=== PATIENT | male | born 1955 | race Caucasian/White ===

== ENCOUNTER 2019-01-04 09:36 | Inpatient (IN) ==
[2019-01-04] MEDS ORDERED: GI Cocktail 40 ML EACH PO ONE (09:57)
--- NOTE | 2019-01-04 10:00 | Emergency Department Note ---
Disposition Clinical Impression: Acute kidney failure Qualifiers: Acute renal failure type: unspecified Qualified Code(s): N17.9 - Acute kidney failure, unspecified Disposition: Admitted As Inpatient Condition: Good Referrals: Iman Brasher CNP [Primary Care Provider] - Forms: ED Satisfaction Letter, Work/School Release Time of Disposition: 13:52 General Adult HPI - General Chief complaint: ED Abdominal Pain Stated complaint: abd pain,vomiting Time Seen by Provider: 01/04/19 09:38 Source: patient, family Mode of arrival: private vehicle Limitations: no limitations Nursing Notes Reviewed: Yes Vital Signs Reviewed: Yes - History of Present Illness HPI Narrative: Kahlil is a pleasant 63-year-old male. He is a past medical history of elevated cholesterol, hypertension, open heart surgery in 2005. He presents to the emergency room with a chief complaint of heartburn worse over the past 7 days however ongoing for the past several months. He was recently evaluated at [facility] in [place] for cardiac pathology. Location: other (describes heartburn type pain) Pain Scale: 7 Quality: other Consistency: now resolved - Related Data Allergies Allergy/AdvReac Type Severity Reaction Status Date / Time hydrocodone AdvReac Vomiting Verified 01/04/19 10:51 Tizanidine [From Zanaflex] AdvReac Vomiting Verified 01/04/19 10:51 All systems ED: reviewed and negative except as stated. Review of Systems: As Per HPI Past Medical History - Past Medical History Medical history: Reports: coronary artery disease, diabetes, hyperlipidemia, hypertension, myocardial infarction, thyroid disease Psychiatric history: Reports: no psych history - Social History Smoking Status: Former smoker Smokeless Tobacco Status: No Alcohol use: Reports: none Drug use: Reports: none Physical Exam - General Limitations: no limitations General appearance: alert, in no apparent distress - Head Head exam: atraumatic - Eye Eye exam: Present: normal appearance, PERRL - ENT ENT exam: normal exam, normal oropharynx - Neck Neck exam: Present: normal inspection - Chest Chest inspection: Present: normal inspection, symmetric chest wall rise - Respiratory Respiratory exam: Present: normal lung sounds bilaterally. Absent: respiratory distress, wheezes - Cardiovascular Cardiovascular exam: Present: regular rate, normal rhythm - Abdominal Exam Abdominal exam: Present: soft, Non-Tender Course Course Narrative: Patient states he felt relief following GI cocktail however on further evaluation, he noted that he did not have the heartburn pain prior to giving the GI cocktail and that was his complaint that brought him into the emergency room. Initial labs review showing acute kidney injury. Subsequent workup found heme positive stool. CT scan was ordered and patient was admitted to the floor for further evaluation due to acute kidney injury. Vital Signs Temperature 98.5 F 01/04/19 09:39 Pulse Rate 62 01/04/19 09:39 Respiratory Rate 17 01/04/19 09:39 Blood Pressure 119/73 01/04/19 09:39 O2 Sat by Pulse Oximetry 97 01/04/19 09:39 Temperature 98.5 F 01/04/19 09:39 Pulse Rate 56 01/04/19 12:23 Respiratory Rate 14 01/04/19 12:23 Blood Pressure 106/66 01/04/19 12:23 O2 Sat by Pulse Oximetry 97 01/04/19 12:23 Oxygen Delivery Oxygen Delivery Room Air Medical Decision Making - Lab Data Result diagrams: 01/04/19 10:05 01/04/19 10:05 Lab Results 01/04/19 01/04/19 01/04/19 Range/Units 10:05 10:05 12:31 WBC 9.2 (4.3-11.1) K/mcL RBC 3.29 L (4.19-5.50) M/mcL Hgb 9.7 L (12.9-16.9) g/dL Hct 29.1 L (37.5-50.1) % MCV 88.4 (83.0-100.0) fL MCH 29.5 (28.0-33.3) pg MCHC 33.3 (31.6-35.5) g/dL RDW 13.9 (11.5-14.5) % Plt Count 335 (140-400) K/mcL MPV 10.9 (9.4-12.4) fL Immature Gran % 0.4 (0-4) % Seg Neutrophils % 74.8 % Lymphocytes % 15.7 % Monocytes % 7.1 % Eosinophils % 1.6 % Basophils % 0.4 % Neutrophils # 6.8 (1.6-8.9) K/mcL Lymphocytes # 1.4 (0.6-4.6) K/mcL Monocytes # 0.7 (0.0-1.3) K/mcL Eosinophils # 0.2 (0.0-0.6) K/mcL Basophils # 0.0 (0.0-0.2) K/mcL Sodium 133 L (136-145) mEq/L Potassium 4.6 (3.5-5.1) mEq/L Chloride 91 L (98-107) mEq/L Carbon Dioxide 32 H (23-29) mEq/L BUN 66 H (8-23) mg/dL Creatinine 2.50 H (0.70-1.30) mg/dL Est GFR ( Amer) 32 L (> 60) Est GFR (Non-Af Amer) 26 L (> 60) BUN/Creatinine Ratio 26 (6-26) Glucose 129 H (70-105) mg/dL Calculated Osmolality 297 (280-300) Calcium 11.0 H (8.6-10.3) mg/dL Total Bilirubin 0.4 (0.3-1.0) mg/dL Direct Bilirubin 0.1 (0.0-0.2) mg/dL Indirect Bilirubin 0.3 (0.0-1.2) mg/dL AST 27 (13-39) Units/L ALT 26 (7-52) Units/L Alkaline Phosphatase 93 (34-104) Units/L Troponin I < 0.03 (< 0.04) ng/mL Serum Total Protein 8.1 (6.4-8.9) g/dL Albumin 4.5 (3.5-5.7) g/dL Globulin 3.6 H (2.4-3.5) g/dL Albumin/Globulin Ratio 1.3 (1.1-2.2) Lipase 64 (11-82) Units/L Stool Occult Bld Scrn Positive A (Negative)
[2019-01-04 10:16] LABS: Basophils % 0.4 %; Eosinophils # 0.2 K/mcL (0.0-0.6); Eosinophils % 1.6 %; Hematocrit 29.1 % (37.5-50.1); Hemoglobin 9.7 g/dL (12.9-16.9); Immature Granulocytes % 0.4 % (0-4); Lymphocytes # 1.4 K/mcL (0.6-4.6); Lymphocytes % 15.7 %; Mean Corpuscular HGB Conc 33.3 g/dL (31.6-35.5); Mean Corpuscular Hemoglobin 29.5 pg (28.0-33.3); Mean Corpuscular Volume 88.4 fL (83.0-100.0); Mean Platelet Volume 10.9 fL (9.4-12.4); Monocytes # 0.7 K/mcL (0.0-1.3); Monocytes % 7.1 %; Neutrophils # 6.8 K/mcL (1.6-8.9); Platelet Count 335 K/mcL (140-400); Red Blood Count 3.29 M/mcL (4.19-5.50); Red Cell Distribution Width 13.9 % (11.5-14.5); Segmented Neutrophils % 74.8 %
[2019-01-04 10:37] LABS: Alanine Aminotransferase 26 Units/L (7-52); Albumin 4.5 g/dL (3.5-5.7); Albumin/Globulin Ratio 1.3 (1.1-2.2); Alkaline Phosphatase 93 Units/L (34-104); Aspartate Amino Transferase 27 Units/L (13-39); BUN/Creatinine Ratio 26 (6-26); Bilirubin,Direct 0.1 mg/dL (0.0-0.2); Bilirubin,Indirect 0.3 mg/dL (0.0-1.2); Bilirubin,Total 0.4 mg/dL (0.3-1.0); Blood Urea Nitrogen 66 mg/dL (8-23); Carbon Dioxide 32 mEq/L (23-29); Chloride 91 mEq/L (98-107); Globulin 3.6 g/dL (2.4-3.5); Glucose 129 mg/dL (70-105); Lipase 64 Units/L (11-82); Osmolality,Calculated 297 (280-300); Potassium 4.6 mEq/L (3.5-5.1); Sodium 133 mEq/L (136-145); Total Protein 8.1 g/dL (6.4-8.9); eGFR For Non-African Americans 26 (> 60)
[2019-01-04 10:38] LABS: Troponin I < 0.03 ng/mL (< 0.04)
[2019-01-04] MEDS ORDERED: 0.9 % Sodium Chloride 1,000 ML IVC ONE (12:00)
[2019-01-04] MEDS ORDERED: Isovue-370 500 ML BOTTLE IVP ONE (12:45)
--- NOTE | 2019-01-04 13:22 | Emergency Department Note ---
Disposition Clinical Impression: Acute kidney failure Disposition: Admitted As Inpatient Condition: Good General Adult HPI - General Chief complaint: ED Abdominal Pain Stated complaint: abd pain,vomiting Time Seen by Provider: 01/04/19 09:38 Source: patient, family Mode of arrival: private vehicle Limitations: no limitations - History of Present Illness Pain Scale: 7 - Related Data Allergies Allergy/AdvReac Type Severity Reaction Status Date / Time hydrocodone AdvReac Vomiting Verified 01/04/19 10:51 Tizanidine [From Zanaflex] AdvReac Vomiting Verified 01/04/19 10:51 Past Medical History - Past Medical History Medical history: Reports: coronary artery disease, diabetes, hyperlipidemia, hypertension, myocardial infarction, thyroid disease Psychiatric history: Reports: no psych history - Social History Smoking Status: Former smoker Smokeless Tobacco Status: No Alcohol use: Reports: none Drug use: Reports: none Physical Exam - General Limitations: no limitations General appearance: alert, in no apparent distress Course Vital Signs Temperature 98.5 F 01/04/19 09:39 Pulse Rate 62 01/04/19 09:39 Respiratory Rate 17 01/04/19 09:39 Blood Pressure 119/73 01/04/19 09:39 O2 Sat by Pulse Oximetry 97 01/04/19 09:39 Temperature 98.5 F 01/04/19 09:39 Pulse Rate 56 01/04/19 12:23 Respiratory Rate 14 01/04/19 12:23 Blood Pressure 106/66 01/04/19 12:23 O2 Sat by Pulse Oximetry 97 01/04/19 12:23 Oxygen Delivery Oxygen Delivery Room Air Medical Decision Making - Lab Data Result diagrams: 01/04/19 10:05 01/04/19 10:05 Lab Results 01/04/19 01/04/19 01/04/19 Range/Units 10:05 10:05 12:31 WBC 9.2 (4.3-11.1) K/mcL RBC 3.29 L (4.19-5.50) M/mcL Hgb 9.7 L (12.9-16.9) g/dL Hct 29.1 L (37.5-50.1) % MCV 88.4 (83.0-100.0) fL MCH 29.5 (28.0-33.3) pg MCHC 33.3 (31.6-35.5) g/dL RDW 13.9 (11.5-14.5) % Plt Count 335 (140-400) K/mcL MPV 10.9 (9.4-12.4) fL Immature Gran % 0.4 (0-4) % Seg Neutrophils % 74.8 % Lymphocytes % 15.7 % Monocytes % 7.1 % Eosinophils % 1.6 % Basophils % 0.4 % Neutrophils # 6.8 (1.6-8.9) K/mcL Lymphocytes # 1.4 (0.6-4.6) K/mcL Monocytes # 0.7 (0.0-1.3) K/mcL Eosinophils # 0.2 (0.0-0.6) K/mcL Basophils # 0.0 (0.0-0.2) K/mcL Sodium 133 L (136-145) mEq/L Potassium 4.6 (3.5-5.1) mEq/L Chloride 91 L (98-107) mEq/L Carbon Dioxide 32 H (23-29) mEq/L BUN 66 H (8-23) mg/dL Creatinine 2.50 H (0.70-1.30) mg/dL Est GFR ( Amer) 32 L (> 60) Est GFR (Non-Af Amer) 26 L (> 60) BUN/Creatinine Ratio 26 (6-26) Glucose 129 H (70-105) mg/dL Calculated Osmolality 297 (280-300) Calcium 11.0 H (8.6-10.3) mg/dL Total Bilirubin 0.4 (0.3-1.0) mg/dL Direct Bilirubin 0.1 (0.0-0.2) mg/dL Indirect Bilirubin 0.3 (0.0-1.2) mg/dL AST 27 (13-39) Units/L ALT 26 (7-52) Units/L Alkaline Phosphatase 93 (34-104) Units/L Troponin I < 0.03 (< 0.04) ng/mL Serum Total Protein 8.1 (6.4-8.9) g/dL Albumin 4.5 (3.5-5.7) g/dL Globulin 3.6 H (2.4-3.5) g/dL Albumin/Globulin Ratio 1.3 (1.1-2.2) Lipase 64 (11-82) Units/L Stool Occult Bld Scrn Positive A (Negative) Attestation Statement - Attestation Attestation: I examined this patient and my medical decision-making was reviewed with the Resident Physician. I agree with the documented findings, disposition and treatment plan as described except to the extent set forth below. Patient to the ED with a chief complaint of reflux. Patient is having intolerable reflux with symptoms into his chest. He had symptoms a couple of days ago when he was in [place] and went to [facility]. They told him to discontinue the medication he is on for his back and he woke up last night with symptoms again. He reports a recent 20 pound weight loss. On examination he appears comfortable with a soft abdomen. Plan. His hemoglobin is dropped 3 g since last check. Stool Hemoccult was done which is positive. He will be placed on Protonix. Recent his renal function as well. We will admit. CT scan reviewed with patient and his . They are aware of the concerning mass in his abdomen and that it will need further evaluation to rule out a neoplastic process. Abdomen/Pelvis CT 01/04/19 12:45 IMPRESSION: Findings suspicious for metastatic disease. Multiple pulmonary nodules. Scattered sclerotic osseous foci are suspicious for metastatic disease. Masslike area within the upper abdomen may represent a mesenteric mass, extension of a duodenal mass, or a pancreatic head mass. Multiple surrounding enlarged lymph nodes are suspicious for metastatic disease. Evaluation is suboptimal without contrast. Recommend post contrast imaging versus MRI with contrast. D/ / 01/04/2019 14:20:16 Jose Guerrier MD / Sarah Woodson Interpreting Provider: Jose Guerrier MD
[2019-01-04] MEDS ORDERED: Pantoprazole 80 MG in 0.9 % Sodium Chloride 50 ML IVPB ONE (13:23)
[2019-01-04] MEDS ORDERED: *HR* FentaNYL (PF) 100 MCG/2 ML VIAL IVP ONE (14:32)
[2019-01-04] MEDS ORDERED: Naloxone 0.4 MG/ML INJ IVP PRN (15:05)
--- NOTE | 2019-01-04 15:13 | Internal Med History&Physical ---
Date of Encounter: 01/05/19 Time of Encounter: 15:11 Internal Medicine - H&P: HPI Chief complaint: Nausea ,vomiting, heartburn Admitted From: Home Plans for Post Hospital Care: Home History of present illness: Mr. Gandhi is a 63 year old male past medical history of coronary artery disease status post CABG in 2005, diabetes, hypertension, hyperlipidemia, hypothyroidism, restless leg syndrome came in with complain of nausea vomiting and heartburn. Heartburn is ongoing for a few months. He was recently hospitalized in [place] and had workup including a CT scan and was told he might have a surgical reaction to one of his medication including tizanidine. He did admit to having some weight loss around 20 pounds. He denies taking any pain medication except tramadol. He denies any recent coronary events in many y ears. He did have associated lightheadedness. Denies any syncopal episodes. He came in back with complain of nausea vomiting and heartburn as it woke him up last night. Patient does not know whether he is anemic or his normal hemoglobin level. Denies any constipation diarrhea or urinary complaints. He denies any abdominal pain or tenderness besides the heartburn symptoms. Denies any difficu lty breathing, chest pain, weakness or numbness. He does have diabetic neuropathy in both lower extremity as well as testing Syndrome. Patient was evaluated in ER which showed positive stool occult blood and the drop in hemoglobin from 12 in June last year to 9. He denies any courtney blood or dark stool. Stool occult test was positive. Patient also was found to have acute kidney injury. Patient was started on pantoprazole and was given 1 L of IV fluids and patient was requested for GI bleeding. Patient also had CT abdomen done which showed findings suspicious of metastasis disease with multiple pulmonary nodules, sclerotic foci in many location, masslike lesion in the upper abdomen which could be mesenteric mass, extensive no duodenal mass or pancreatic mass. Patient was aware of the findings from ER physician. He was aware that it could be cancerous condition and is anxious and says in "I do not know want to know how long do I have". Past Med Surg Social Fam HX - Past Medical History Medical history: coronary artery disease, diabetes, hyperlipidemia, hypertension, myocardial infarction, thyroid disease Psychiatric history: no psych history - Past Surgical History Surgical History: coronary bypass (CABG) - Social History Smoking Status: Former smoker (about 40-45 pack years) Smokeless Tobacco Status: No Alcohol use: none Drug use: none Activity Level: Independent ambulation - Family History Daughter Cause of : breast cancer Hx Family Cancer: Yes - Additional Family History Additional family history: Father had lung Ca - at 54. Mother had Heart disease- Had GI cancer. Borther has heart disease. Daughter of breast cancer at 44. Sister has HTN Internal Medicine - H&P: Meds Aspirin [Adult Aspirin Regimen] 81 mg PO DAILY 01/04/19 [History] Atenolol [Tenormin] 25 mg PO DAILY 01/04/19 [History] Benazepril HCl [Lotensin] 20 mg PO DAILY 01/04/19 [History] Levothyroxine 125 mcg PO DAILY 01/04/19 [History] [place] 5-325 mg 5 - 325 mg PO Q6H PRN 01/04/19 [History] Simvastatin 40 mg PO HS 01/04/19 [History] Tizanidine HCl 4 mg PO TID PRN 01/04/19 [History] Tramadol HCl 50 mg PO Q6H PRN 01/04/19 [History] rOPINIRole 1 mg PO HS 01/04/19 [History] Allergy/AdvReac Type Severity Reaction Status Date / Time hydrocodone AdvReac Vomiting Verified 01/04/19 10:51 Tizanidine [From Zanaflex] AdvReac Vomiting Verified 01/04/19 10:51 All Systems PM: A 10-system review of systems was performed and is negative for pertinent findings except as documented above in the HPI. - Constitutional Vitals: Temp Pulse Resp BP Pulse Ox 98.5 F 64 15 109/64 96 01/04/19 09:39 01/04/19 14:47 01/04/19 14:47 01/04/19 14:47 01/04/19 14:47 Exam: Constitutional: Vitals as noted. Conversant. No Apparent Distress. Eyes : Sclera white, conjunctival paler ENT : Grossly normal hearing. dry mucus membranes. No JVD, no cervical lymphadenopathy. no thyromegaly or mass. Respiratory : Clear to auscultation bilaterally. No accessory muscle use, rales, rhonchi or wheezes Cardiovascular : RRR, +S1, +S2. no murmur, gallop, rubs. No chest wall tenderness GI/Abdominal : Soft, Non-tender, Non-distended, normal bowel sounds, soft, no peritoneal signs. no orgenomegaly or mass appreciated. no hernia. Musculoskeletal: no edema or cyanosis. warm extremities, no calf tenderness. Neurological: AO X3, CN II-XII grossly intact, grossly normal motor and sensory exam. Skin: No skin rash, lesions or ulcers noted. Pych: depressed affect. Internal Med - H&P Results - Labs CBC & Chem 7: 01/05/19 00:30 01/05/19 00:30 Labs: Short CBC 01/04/19 Range/Units 10:05 WBC 9.2 (4.3-11.1) K/mcL Hgb 9.7 L (12.9-16.9) g/dL Hct 29.1 L (37.5-50.1) % Plt Count 335 (140-400) K/mcL Neutrophils # 6.8 (1.6-8.9) K/mcL BMP 01/04/19 10:05 Sodium 133 L Potassium 4.6 Chloride 91 L Carbon Dioxide 32 H BUN 66 H Creatinine 2.50 H Glucose 129 H Calcium 11.0 H Cardiac Enzymes 01/04/19 Range/Units 10:05 Troponin I < 0.03 (< 0.04) ng/mL Liver Function 01/04/19 Range/Units 10:05 Total Bilirubin 0.4 (0.3-1.0) mg/dL Direct Bilirubin 0.1 (0.0-0.2) mg/dL AST 27 (13-39) Units/L ALT 26 (7-52) Units/L Alkaline Phosphatase 93 (34-104) Units/L Albumin 4.5 (3.5-5.7) g/dL - EKG Data -: EKG Interpreted by Myself EKG shows normal: sinus rhythm Rate: normal - Impressions ITS Impressions Abdomen/Pelvis CT 01/04/19 12:45 IMPRESSION: Findings suspicious for metastatic disease. Multiple pulmonary nodules. Scattered sclerotic osseous foci are suspicious for metastatic disease. Masslike area within the upper abdomen may represent a mesenteric mass, extension of a duodenal mass, or a pancreatic head mass. Multiple surrounding enlarged lymph nodes are suspicious for metastatic disease. Evaluation is suboptimal without contrast. Recommend post contrast imaging versus MRI with contrast. D/ / 01/04/2019 14:20:16 Jose Guerrier MD / Sarah Woodson Interpreting Provider: Jose Guerrier MD - Assessment and Plan (1) GI bleed Current Visit: Yes Status: Acute Assessment and plan: Patient may have upper GI bleed Had last colonoscopy in 2005 which was unremarkable. Has not had upper endoscopy in lifetime. Denies taking any NSAIDs except Aspirin or any other blood thinners. We will continue patient on IV fluids Trend troponin and transfuse if hemoglobin less than 8 We will keep on Protonix IV 40 twice a day Patient will need upper endoscopy and possibly colonoscopy. Will keep nothing by mouth for now until evaluated by surgery. Qualifiers: GI bleed type/associated pathology: unspecified gastrointestinal hemorrhage type Qualified Code(s): K92.2 - Gastrointestinal hemorrhage, unspecified (2) Abdominal mass Current Visit: Yes Status: Acute Assessment and plan: Patient has upper abdominal mass possibly arising from the duodenum versus pancreas We will consult GI as well as surgery. Further evaluation with endoscopy. Qualifiers: Abdominal location: epigastric Qualified Code(s): R19.06 - Epigastric swelling, mass or lump (3) Acute kidney failure Current Visit: Yes Status: Acute Assessment and plan: Possibly prerenal We will keep patient on IV fluids and monitor renal function Strict I/O and avoid nephrotoxins. We will further imaging with contrast as of now Qualifiers: Acute renal failure type: unspecified Qualified Code(s): N17.9 - Acute kidney failure, unspecified (4) DVT prophylaxis Current Visit: Yes Status: Acute Assessment and plan: EPC D (5) Diabetes Current Visit: Yes Status: Acute Assessment and plan: does not appear to be on oral hypoglycemics We will keep him on Accu-Cheks and sliding scale insulin for now. Qualifiers: Diabetes mellitus type: type 2 Diabetes mellitus jail insulin use: without truck terminal manager use Qualified Code(s): E11.9 - Type 2 diabetes mellitus without complications (6) HTN (hypertension) Current Visit: Yes Status: Acute Assessment and plan: Hold home antihypertensives given possible GI bleed and blood pressure on the lower end. Qualifiers: Hypertension type: unspecified Qualified Code(s): I10 - Essential (primary) hypertension (7) CAD (coronary artery disease) Current Visit: Yes Status: Acute Assessment and plan: c/w statin. Aspirin on hold given GI bleed. atenol on hold given BP on lower end. Qualifiers: Coronary Disease-Associated Artery/Lesion type: [place] artery Associated angina: without angina Qualified Code(s): I25.10 - Atherosclerotic heart disease of [place] coronary artery without angina pectoris (8) Hypothyroid Current Visit: Yes Status: Acute Assessment and plan: Continue home medications Qualifiers: Hypothyroidism type: unspecified Qualified Code(s): E03.9 - Hypothyroidism, unspecified (9) Diabetic neuropathy Current Visit: Yes Status: Acute Qualifiers: Diabetes mellitus type: type 2 Qualified Code(s): E11.42 - Type 2 diabetes mellitus with diabetic polyneuropathy (10) Restless leg syndrome Current Visit: Yes Status: Acute Assessment and plan: We will continue home medication - Time Spent With Patient Total time spent is greater than 50% in coordination of care (as documented) at patient's floor/unit and/or counseling patient:
[2019-01-04] MEDS ORDERED: *HR* LORazepam 0.5 MG TABLET PO PRN (15:15)
[2019-01-04] MEDS ORDERED: Ondansetron 4 MG/2 ML VIAL IVP PRN (15:16)
[2019-01-04 16:02] LABS: Prothrombin Time 11.8 Seconds (9.4-12.1)
[2019-01-04 16:11] LABS: Hematocrit 27.9 % (37.5-50.1); Hemoglobin 9.2 g/dL (12.9-16.9)
[2019-01-04] MEDS: Ringers Solution, Lactated 1,000 ML IVC SCH (17:49)
[2019-01-04] MEDS: Insulin LISPRO 300 UNITS/3 ML VIAL SQ SCH (17:49)
[2019-01-04] MEDS: Pantoprazole 40 MG VIAL IVP SCH (17:49)
[2019-01-04] MEDS: rOPINIRole 1 MG TABLET PO SCH (21:01)
[2019-01-04 22:25] LABS: Hematocrit 29.4 % (37.5-50.1); Hemoglobin 9.7 g/dL (12.9-16.9)
[2019-01-05] MEDS: Insulin LISPRO 300 UNITS/3 ML VIAL SQ SCH ×5 (00:47→23:33)
[2019-01-05 01:09] LABS: Basophils % 0.3 %; Eosinophils # 0.3 K/mcL (0.0-0.6); Eosinophils % 2.9 %; Hematocrit 26.8 % (37.5-50.1); Hemoglobin 8.6 g/dL (12.9-16.9); Immature Granulocytes % 0.7 % (0-4); Lymphocytes # 1.8 K/mcL (0.6-4.6); Lymphocytes % 19.4 %; Mean Corpuscular HGB Conc 32.1 g/dL (31.6-35.5); Mean Corpuscular Hemoglobin 29.3 pg (28.0-33.3); Mean Corpuscular Volume 91.2 fL (83.0-100.0); Mean Platelet Volume 11.6 fL (9.4-12.4); Monocytes # 0.8 K/mcL (0.0-1.3); Monocytes % 8.8 %; Neutrophils # 6.4 K/mcL (1.6-8.9); Platelet Count 278 K/mcL (140-400); Red Blood Count 2.94 M/mcL (4.19-5.50); Segmented Neutrophils % 67.9 %
[2019-01-05 01:29] LABS: Calcium 9.9 mg/dL (8.6-10.3); Potassium 4.6 mEq/L (3.5-5.1)
[2019-01-05] MEDS: Ringers Solution, Lactated 1,000 ML IVC SCH (05:00)
[2019-01-05] MEDS: Pantoprazole 40 MG VIAL IVP SCH ×2 (05:01→17:05)
[2019-01-05] MEDS: Levothyroxine Sodium 100 MCG VIAL IVP SCH (05:01)
--- NOTE | 2019-01-05 08:01 | Internal Med Progress Note ---
Hospitalist Progress Note - Encounter Date of Encounter: 01/05/19 Time of Encounter: 08:01 - Subjective Interval History: Patient seen and examined this morning at bedside. No acute overnight events. Is currently nothing by mouth. Feeling anxious. Denies any difficulty breathing or abdominal pain, nausea vomiting or diarrhea. - Exam Vitals: Temp Pulse Resp BP Pulse Ox 98.0 F 68 17 125/71 97 01/05/19 07:57 01/05/19 07:57 01/05/19 07:57 01/05/19 07:57 01/05/19 07:57 Exam: Constitutional: Vitals as noted. Conversant. No Apparent Distress. Respiratory : CTAB. No accessory muscle use, rales, rhonchi or wheezes Cardiovascular : RRR, +S1, +S2. no murmur, gallop, rubs. No chest wall tenderness GI/Abdominal : Soft, Non-tender, Non-distended, soft, no peritoneal signs. Musculoskeletal: no edema or cyanosis. warm extremities, no calf tenderness. Neurological: AO X3, CN II-XII grossly intact, grossly normal motor exam. Skin: No skin rash, lesions or ulcers noted. Pych: depressed affect. - Assessment and Plan (1) GI bleed Current Visit: Yes Status: Suspected (2) Abdominal mass Current Visit: Yes Status: Acute (3) Acute kidney failure Current Visit: Yes Status: Acute (4) DVT prophylaxis Current Visit: Yes Status: Acute (5) Diabetes Current Visit: Yes Status: Acute (6) HTN (hypertension) Current Visit: Yes Status: Acute (7) CAD (coronary artery disease) Current Visit: Yes Status: Acute (8) Hypothyroid Current Visit: Yes Status: Acute (9) Diabetic neuropathy Current Visit: Yes Status: Acute (10) Restless leg syndrome Current Visit: Yes Status: Acute - Summary of Assessment and Plan Summary of Assessment and Plan: Anemia, GI bleed, abdominal mass - possible upper GI bleed - c/w PPI - CT abdomen with possible pancreatic vs duodenal mass. CT - GI and surgery following for endoscopy - CT with innumerable b/l Pul nodules and sceloritic body lesion suspicious of metastatic disease. Will consult oncology Acute kidney failure - Possibly prerenal - improved with IVF. c/w with IVF. - We will hold further imaging with contrast as of now Diabetes - c/w SSI and accuchecks HTN - Hold home antihypertensives CAD - c/w statin. Aspirin and atenolol on hold given GI bleed and BP on lower end. Hypothyroid - c/w IV levothyroxin Restless leg syndrome - c/w home medication DVT prophylaxis - EPCD - Time Spent with Patient Total time spent is greater than 50% in coordination of care (as documented) at patient's floor/unit and/or counseling patient: Internal Medicine: Result - Labs CBC & Chem 7: 01/05/19 09:50 01/05/19 00:30 Labs: Short CBC 01/04/19 01/04/19 01/04/19 Range/Units 10:05 16:05 21:53 WBC 9.2 (4.3-11.1) K/mcL Hgb 9.7 L 9.2 L 9.7 L (12.9-16.9) g/dL Hct 29.1 L 27.9 L 29.4 L (37.5-50.1) % Plt Count 335 (140-400) K/mcL Neutrophils # 6.8 (1.6-8.9) K/mcL 01/05/19 Range/Units 00:30 WBC 9.4 (4.3-11.1) K/mcL Hgb 8.6 L (12.9-16.9) g/dL Hct 26.8 L (37.5-50.1) % Plt Count 278 (140-400) K/mcL Neutrophils # 6.4 (1.6-8.9) K/mcL BMP 01/04/19 01/05/19 10:05 00:30 Sodium 133 L 132 L Potassium 4.6 4.6 Chloride 91 L 97 L Carbon Dioxide 32 H 27 BUN 66 H 56 H Creatinine 2.50 H 2.08 H Glucose 129 H 95 Calcium 11.0 H 9.9 Cardiac Enzymes 01/04/19 Range/Units 10:05 Troponin I < 0.03 (< 0.04) ng/mL Liver Function 01/04/19 Range/Units 10:05 Total Bilirubin 0.4 (0.3-1.0) mg/dL Direct Bilirubin 0.1 (0.0-0.2) mg/dL AST 27 (13-39) Units/L ALT 26 (7-52) Units/L Alkaline Phosphatase 93 (34-104) Units/L Albumin 4.5 (3.5-5.7) g/dL - ABG Interpretation ABG results: PT/INR, D-dimer PT 11.8 Seconds (9.4-12.1) 01/04/19 15:05 - Impressions Impressions Abdomen/Pelvis CT 01/04/19 12:45 IMPRESSION: Findings suspicious for metastatic disease. Multiple pulmonary nodules. Scattered sclerotic osseous foci are suspicious for metastatic disease. Masslike area within the upper abdomen may represent a mesenteric mass, extension of a duodenal mass, or a pancreatic head mass. Multiple surrounding enlarged lymph nodes are suspicious for metastatic disease. Evaluation is suboptimal without contrast. Recommend post contrast imaging versus MRI with contrast. D/ / 01/04/2019 14:20:16 Jose Guerrier MD / Sraah Woodson Interpreting Provider: Jose Guerrier MD Chest CT 01/04/19 15:41 IMPRESSION: 1. Findings again suspicious for metastatic disease as noted on today's CT abdomen pelvis including innumerable bilateral pulmonary nodules measuring up to 1.3 cm and several sclerotic osseous lesions involving the bilateral ribs. PET-CT or tissue sampling should be considered. 2. Redemonstration of ill-defined hepatic lesion on this noncontrast exam is described on today's CT abdomen pelvis. D/ / Leon Whelan MD / Leon Whelan MD Interpreting Provider: Leon Whelan MD Consult Discharge Plan - Plan Referrals: Iman Brasher, [facility] [facility] [Primary Care Provider] - 01/09/19 2:00 pm () (1) GI bleed Qualifiers: GI bleed type/associated pathology: unspecified gastrointestinal hemorrhage type Qualified Code(s): K92.2 - Gastrointestinal hemorrhage, unspecified (2) Abdominal mass Qualifiers: Abdominal location: epigastric Qualified Code(s): R19.06 - Epigastric swelling, mass or lump (3) Acute kidney failure Qualifiers: Acute renal failure type: unspecified Qualified Code(s): N17.9 - Acute kidney failure, unspecified (5) Diabetes Qualifiers: Diabetes mellitus type: type 2 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
--- NOTE | 2019-01-05 08:36 | General Surgery Consult Note ---
<Justin Kenyon - Last Filed: 01/05/19 08:25> Date of Encounter: 01/05/19 Time of Encounter: 07:45 Assessment and Plan (1) Abdominal mass Current Visit: Yes Status: Acute -Previously unknown to patient -CT abd/plv 01/04/19: Mass within upper abdomen, may represent mesenteric mass, duodenol mass, or pancreatic head mass. Multiple surrounding mesenteric lymph nodes suspicious of metastatic disease. Multiple pulmonary nodules. -Upon review of the CT images pancreatic head appears most likely -Will need biopsy via EUS and GI has been consulted by primary service -No surgical intervention at this point -Any surgical intervention will likely be palliative in nature -Will follow if needed in the future Qualifiers: Abdominal location: epigastric Qualified Code(s): R19.06 - Epigastric swelling, mass or lump (2) GI bleed Current Visit: Yes Status: Suspected -GI consulted from primary service for work up Qualifiers: GI bleed type/associated pathology: unspecified gastrointestinal hemorrhage type Qualified Code(s): K92.2 - Gastrointestinal hemorrhage, unspecified History of Present Illness Consult date: 01/05/19 Reason for consult: other (Abdominal mass) Requesting physician: Suzy Cortes History of present illness: Pmh significant for CAD s/p CABG 2005, HTN, DM, HLD, and hypothyroidism who presented to ED complaining of N/V and reflux symptoms which has been worsening over last week but present for couple months. He denies abdominal pain, diarrhea, constipation, chest pain, dyspnea. Recently, he has lost ~20 pounds un intentionally. Within the ED he was found to be anemic with hgb 9.7 which was 12.6 at most recent visit 6 months ago. Additionally, stool occult pos and with ANGIE. CT abd/plv was obtained and showed an abdominal mass with surrounding enlarged mesenteric lymph nodes concerning of metastatic process. Past Med Surg Social Fam HX - Past Medical History Medical history: coronary artery disease, diabetes, hyperlipidemia, hypertension, myocardial infarction, thyroid disease Psychiatric history: no psych history - Past Surgical History Surgical History: coronary bypass (CABG) - Social History Smoking Status: Former smoker (about 40-45 pack years) Smokeless Tobacco Status: No Alcohol use: none Drug use: none - Family History Daughter Cause of : breast cancer Hx Family Cancer: Yes Medications and Allergies Levothyroxine 125 mcg PO DAILY 01/04/19 [History] [place] 5-325 mg 5 - 325 mg PO Q6H PRN 01/04/19 [History] RX: Aspirin [Adult Aspirin Regimen] 81 mg PO DAILY 01/04/19 [History] RX: Atenolol [Tenormin] 25 mg PO DAILY 01/04/19 [History] RX: Benazepril HCl [Lotensin] 20 mg PO DAILY 01/04/19 [History] Simvastatin 40 mg PO HS 01/04/19 [History] Tizanidine HCl 4 mg PO TID PRN 01/04/19 [History] Tramadol HCl 50 mg PO Q6H PRN 01/04/19 [History] rOPINIRole 1 mg PO HS 01/04/19 [History] Allergy/AdvReac Type Severity Reaction Status Date / Time hydrocodone AdvReac Vomiting Verified 01/04/19 10:51 Tizanidine [From Zanaflex] AdvReac Vomiting Verified 01/04/19 10:51 Review of Systems All systems PM: The remainder of the systems were reviewed and are negative General Surgery Exam Initial Vital Signs Temp Pulse Resp BP Pulse Ox 98.5 F 62 17 119/73 97 01/04/19 09:39 01/04/19 09:39 01/04/19 09:39 01/04/19 09:39 01/04/19 09:39 - General physical appearance well developed, well nourished, no distress - Eyes normal ocular movement - ENT dry mucosa - Neck trachea midline - Respiratory normal expansion, normal respiratory effort, clear to auscultation - Cardiovascular Cardiovascular exam: Present: RRR. Absent: bradycardia, tachycardia, irregular rhythm, murmurs, clicks, rubs, gallop, distant heart sounds, JVD - Abdomen Abdomen general surgery: Present: bowel sounds present, soft, non tender. Absent: distended, tender, organomegaly, masses, guarding, rebound, rigid - Integumentary Integumentary general surgery: Present: warm and dry, no abnormal pigmentation - Neurologic Present: CN 2-12 grossly intact, normal coordination - Psychiatric Psychiatric general surgery: Present: A&Ox3, appropriate Exam Initial Vital Signs Temp Pulse Resp BP Pulse Ox 98.5 F 62 17 119/73 97 01/04/19 09:39 01/04/19 09:39 01/04/19 09:39 01/04/19 09:39 01/04/19 09:39 Results - Labs 01/05/19 00:30 01/05/19 00:30 Abnormal lab results RBC 2.94 M/mcL (4.19-5.50) L 01/05/19 00:30 Hgb 8.6 g/dL (12.9-16.9) L 01/05/19 00:30 Hct 26.8 % (37.5-50.1) L 01/05/19 00:30 Sodium 132 mEq/L (136-145) L 01/05/19 00:30 Chloride 97 mEq/L (98-107) L 01/05/19 00:30 BUN 56 mg/dL (8-23) H 01/05/19 00:30 Creatinine 2.08 mg/dL (0.70-1.30) H 01/05/19 00:30 Est GFR ( Amer) 39 (> 60) L 01/05/19 00:30 Est GFR (Non-Af Amer) 32 (> 60) L 01/05/19 00:30 BUN/Creatinine Ratio 27 (6-26) H 01/05/19 00:30 Globulin 3.6 g/dL (2.4-3.5) H 01/04/19 10:05 Stool Occult Bld Scrn Positive (Negative) A 01/04/19 12:31 Diabetes panel 01/04/19 01/05/19 Range/Units 10:05 00:30 Sodium 133 L 132 L (136-145) mEq/L Potassium 4.6 4.6 (3.5-5.1) mEq/L Chloride 91 L 97 L (98-107) mEq/L Carbon Dioxide 32 H 27 (23-29) mEq/L BUN 66 H 56 H (8-23) mg/dL Creatinine 2.50 H 2.08 H (0.70-1.30) mg/dL Glucose 129 H 95 (70-105) mg/dL Calcium 11.0 H 9.9 (8.6-10.3) mg/dL AST 27 (13-39) Units/L ALT 26 (7-52) Units/L Alkaline Phosphatase 93 (34-104) Units/L Albumin 4.5 (3.5-5.7) g/dL Calcium panel 01/04/19 01/05/19 Range/Units 10:05 00:30 Calcium 11.0 H 9.9 (8.6-10.3) mg/dL Albumin 4.5 (3.5-5.7) g/dL Pituitary panel 01/04/19 01/05/19 Range/Units 10:05 00:30 Sodium 133 L 132 L (136-145) mEq/L Potassium 4.6 4.6 (3.5-5.1) mEq/L Chloride 91 L 97 L (98-107) mEq/L Carbon Dioxide 32 H 27 (23-29) mEq/L BUN 66 H 56 H (8-23) mg/dL Creatinine 2.50 H 2.08 H (0.70-1.30) mg/dL Glucose 129 H 95 (70-105) mg/dL Calcium 11.0 H 9.9 (8.6-10.3) mg/dL Adrenal panel 01/04/19 01/05/19 Range/Units 10:05 00:30 Sodium 133 L 132 L (136-145) mEq/L Potassium 4.6 4.6 (3.5-5.1) mEq/L Chloride 91 L 97 L (98-107) mEq/L Carbon Dioxide 32 H 27 (23-29) mEq/L BUN 66 H 56 H (8-23) mg/dL Creatinine 2.50 H 2.08 H (0.70-1.30) mg/dL Glucose 129 H 95 (70-105) mg/dL Calcium 11.0 H 9.9 (8.6-10.3) mg/dL Total Bilirubin 0.4 (0.3-1.0) mg/dL AST 27 (13-39) Units/L ALT 26 (7-52) Units/L Alkaline Phosphatase 93 (34-104) Units/L Albumin 4.5 (3.5-5.7) g/dL All other labs normal. - Imaging CT scan - abdomen: report reviewed, image reviewed Consult Discharge Plan - Plan Referrals: Iman Brasher, [facility] [Primary Care Provider] - 01/09/19 2:00 pm () <Lefty Faye - Last Filed: 01/05/19 09:00> Date of Encounter: 01/05/19 Review of Systems All systems PM: The remainder of the systems were reviewed and are negative General Surgery Exam Initial Vital Signs Temp Pulse Resp BP Pulse Ox 98.5 F 62 17 119/73 97 01/04/19 09:39 01/04/19 09:39 01/04/19 09:39 01/04/19 09:39 01/04/19 09:39 Exam Initial Vital Signs Temp Pulse Resp BP Pulse Ox 98.5 F 62 17 119/73 97 01/04/19 09:39 01/04/19 09:39 01/04/19 09:39 01/04/19 09:39 01/04/19 09:39 Results - Labs 01/05/19 00:30 01/05/19 00:30 Abnormal lab results RBC 2.94 M/mcL (4.19-5.50) L 01/05/19 00:30 Hgb 8.6 g/dL (12.9-16.9) L 01/05/19 00:30 Hct 26.8 % (37.5-50.1) L 01/05/19 00:30 Sodium 132 mEq/L (136-145) L 01/05/19 00:30 Chloride 97 mEq/L (98-107) L 01/05/19 00:30 BUN 56 mg/dL (8-23) H 01/05/19 00:30 Creatinine 2.08 mg/dL (0.70-1.30) H 01/05/19 00:30 Est GFR ( Amer) 39 (> 60) L 01/05/19 00:30 Est GFR (Non-Af Amer) 32 (> 60) L 01/05/19 00:30 BUN/Creatinine Ratio 27 (6-26) H 01/05/19 00:30 Globulin 3.6 g/dL (2.4-3.5) H 01/04/19 10:05 Stool Occult Bld Scrn Positive (Negative) A 01/04/19 12:31 Diabetes panel 01/04/19 01/05/19 Range/Units 10:05 00:30 Sodium 133 L 132 L (136-145) mEq/L Potassium 4.6 4.6 (3.5-5.1) mEq/L Chloride 91 L 97 L (98-107) mEq/L Carbon Dioxide 32 H 27 (23-29) mEq/L BUN 66 H 56 H (8-23) mg/dL Creatinine 2.50 H 2.08 H (0.70-1.30) mg/dL Glucose 129 H 95 (70-105) mg/dL Calcium 11.0 H 9.9 (8.6-10.3) mg/dL AST 27 (13-39) Units/L ALT 26 (7-52) Units/L Alkaline Phosphatase 93 (34-104) Units/L Albumin 4.5 (3.5-5.7) g/dL Calcium panel 01/04/19 01/05/19 Range/Units 10:05 00:30 Calcium 11.0 H 9.9 (8.6-10.3) mg/dL Albumin 4.5 (3.5-5.7) g/dL Pituitary panel 01/04/19 01/05/19 Range/Units 10:05 00:30 Sodium 133 L 132 L (136-145) mEq/L Potassium 4.6 4.6 (3.5-5.1) mEq/L Chloride 91 L 97 L (98-107) mEq/L Carbon Dioxide 32 H 27 (23-29) mEq/L BUN 66 H 56 H (8-23) mg/dL Creatinine 2.50 H 2.08 H (0.70-1.30) mg/dL Glucose 129 H 95 (70-105) mg/dL Calcium 11.0 H 9.9 (8.6-10.3) mg/dL Adrenal panel 01/04/19 01/05/19 Range/Units 10:05 00:30 Sodium 133 L 132 L (136-145) mEq/L Potassium 4.6 4.6 (3.5-5.1) mEq/L Chloride 91 L 97 L (98-107) mEq/L Carbon Dioxide 32 H 27 (23-29) mEq/L BUN 66 H 56 H (8-23) mg/dL Creatinine 2.50 H 2.08 H (0.70-1.30) mg/dL Glucose 129 H 95 (70-105) mg/dL Calcium 11.0 H 9.9 (8.6-10.3) mg/dL Total Bilirubin 0.4 (0.3-1.0) mg/dL AST 27 (13-39) Units/L ALT 26 (7-52) Units/L Alkaline Phosphatase 93 (34-104) Units/L Albumin 4.5 (3.5-5.7) g/dL All other labs normal. - Attending Attestation I have personally seen and examined the patient. I have reviewed pertinent labs, imaging, progress notes, including this one. I have discussed the plan in thorough detail with the resident and nurse practitioner. I agree with the above assessment and plan.
[2019-01-05] MEDS ORDERED: Lisinopril 20 MG TABLET PO SCH (09:00)
[2019-01-05] MEDS: OXYCODONE Oral CONC 10 MG/0.5 ML ORAL.SYG SL PRN ×3 (10:03→23:02)
[2019-01-05 10:07] LABS: Hematocrit 28.9 % (37.5-50.1); Hemoglobin 9.4 g/dL (12.9-16.9)
--- NOTE | 2019-01-05 10:26 | Oncology Inp Consult Note ---
<Madeline Newman - Last Filed: 01/05/19 17:46> Date of Encounter: 01/05/19 Time of Encounter: 09:15 Assessment and Plan (1) Abdominal mass Status: Acute Assessment and plan: CT abdomen and pelvis without contrast (01/04/19) and CT chest (01/04/19) Masslike area within the upper abdomen may represent a mesenteric mass, extension of a duodenal mass, or a pancreatic head mass. Measuring 2.6 cm. Multiple surrounding enlarged lymph nodes are suspicious for metastatic disease. Multiple pulmonary nodules The largest within the left upper lobe is seen anteriorly and measures approximately 1.0 x 1.2 cm (image 84 series 3). Large nodule within the left lower lobe is seen medially and measures 1.1 x 1.3 cm (image 109 series 3). Largest nodule within the right upper lobe measures 0.7 x 1.1 cm (image 87 series 3). Largest in the right middle lobe measures 0.8 x 1.0 cm (image 100 series 3). Largest within the right lower lobe measures 1.0 x 1.2 cm (image 116 series 3). Scattered sclerotic osseous foci are suspicious for metastatic disease. Plan: GI consulted: EGD biopsy of duodenal mass 01/05/[address] Ventura. Will want to discuss management of postprandial emesis related to duodenal mass. May need to consider duodenal stent vs. duodenal bypass Surgery consulted and no surgical intervention at this time. Qualifiers: Abdominal location: epigastric Qualified Code(s): R19.06 - Epigastric swelling, mass or lump (2) Acute kidney failure Status: Acute Assessment and plan: Acute kidney failure 01/05/19: BUN 56, creatinine 2.08, eGFR 27 Plan: Continue with IV hydration and avoid nephrotoxic medications. Monitor kidney function daily. Due to kidney function, no IV contrast at this time. Qualifiers: Acute renal failure type: unspecified Qualified Code(s): N17.9 - Acute kidney failure, unspecified (3) GI bleed Status: Suspected Assessment and plan: Occult stool + 01/05/19: hgb 8.6. Plan: GI consulted. Appreciate recommendations. Transfusion parameters: Give 1 unit pRBC's for Hgb <8 Qualifiers: GI bleed type/associated pathology: unspecified gastrointestinal hemorrhage type Qualified Code(s): K92.2 - Gastrointestinal hemorrhage, unspecified (4) Nausea & vomiting Status: Acute Assessment and plan: Patient presented with nausea and vomiting since September, worsening over the past few weeks. Report emesis x 1 daily, typically in the morning. He notes that he can tolerate liquids, but certain foods, especially sausage is difficult for him. Plan: NPO currently. Accuchecks per hospital policy. IV hydration. Anti-emetics: Zofran 4 mg IV q 8 hours PRN. Qualifiers: Vomiting type: unspecified Vomiting Intractability: unspecified Qualified Code(s): R11.2 - Nausea with vomiting, unspecified - Data of Consult Patient: new to practice Consult date: 01/05/19 Requesting Physician: Suzy Cortes MD Primary Care Provider: Iman Brasher CNP - Consult Narrative Reason for consult: abdominal mass with multiple pulmonary nodules History of present illness: Mr. Gandhi is a 63 yo male that presented to the emergency department on 01/04/19 for nausea and vomiting. He notes a 4 month history of nausea, vomiting, heartburn, and 28 lb weight loss. He also notes that she has noticed vocal changes and increases fatigue. She noticed that he has been taking daily naps and is not able to cut wood for their wood burning stove for the past few weeks. He denies headaches, or vision changes. He denies cough or shortness of breath. He denies changes in bowel habits, diarrhea, or constipation. He had a "normal" BM this morning without difficulty. He denies courtney blood in stool. He denies fever, chills, or drenching night sweats. He states that he is anxious to find out if he has cancer, what type of cancer it is, and how we do not treating it. His notes that they would most likely want to go to the [facility] for treatment. Medical history: Coronary artery disease status post CABG in 2005. Diabetes mellitus, diabetic neuropathy,Restless leg syndrome, hypertension, hyperlipidemia, and hypothyroidism. Social history: Lives at home ([place]) with spouse. Has 6 children. 1 daughter from breast cancer at 44yo. Tobacco use: 2-3 ppd for 40+ years. Quit in 2005. Alcohol use: Denies use Illicit drug use: Denies use Family history of cancer: Father at age 54 from lung cancer. Mother from GI cancer. Daughter at age 44 from breast cancer. Past Med Surg Social Fam HX - Past Medical History Medical history: coronary artery disease, diabetes, hyperlipidemia, hypertension, myocardial infarction, thyroid disease Psychiatric history: no psych history - Past Surgical History Surgical History: coronary bypass (CABG) - Social History Smoking Status: Former smoker (about 40-45 pack years) Smokeless Tobacco Status: No Alcohol use: none Drug use: none - Family History Daughter Cause of : breast cancer Hx Family Cancer: Yes Father Living Status: Age at : 54 Cause of : lung cancer Hx Family Cancer: Yes Mother Living Status: Cause of : GI cancer Hx Family Cancer: Yes Medications and Allergies Amlodipine Besylate 10 mg PO DAILY 01/05/19 [History] Aspirin [Lo-Dose Aspirin EC] 81 mg PO DAILY 01/05/19 [History] Atenolol [Tenormin] 12.5 mg PO HS 01/05/19 [History] Benazepril HCl 60 mg PO DAILY 01/05/19 [History] Cholecalciferol (Vitamin D3) [Vitamin D] 2,000 unit PO QAM 01/05/19 [History] Sikes-3/Dha/Epa/Fish Oil [Fish Oil 1,000 mg Softgel] 2 cap PO DAILY 01/05/19 [History] RX: Amitriptyline [Elavil] 25 mg PO HS 01/05/19 [History] RX: Fenofibrate [Tricor] 54 mg PO DAILY 01/05/19 [History] RX: Levothyroxine Sodium 125 mcg PO DAILY 01/05/19 [History] RX: Metoprolol [Lopressor] 25 mg PO BID 01/05/19 [History] RX: Simvastatin [Zocor] 40 mg PO QPM 01/05/19 [History] RX: rOPINIRole [Requip] 1 mg PO HS 01/05/19 [History] Tramadol HCl [Ultram] 50 mg PO Q6H PRN 01/05/19 [History] Allergy/AdvReac Type Severity Reaction Status Date / Time hydrocodone AdvReac Vomiting, Verified 01/05/19 15:49 nausea Tizanidine [From Zanaflex] AdvReac Vomiting, Verified 01/05/19 15:49 nausea Constitutional: Present: fatigue, weight loss. Absent: fever(s), headache(s), night sweats Additional comments: 28lb weight loss since September. Eyes: Absent: change in vision Additional comments: vocal changes noted by spouse Cardiovascular: Absent: chest pain, dyspnea, leg edema, palpitations Respiratory: Absent: cough, dyspnea Gastrointestinal: Present: dyspepsia, nausea, vomiting. Absent: change in bowel habits, dysphagia, hematemesis, hematochezia Musculoskeletal: Absent: joint swelling Integumentary: Absent: rash, unusual bruising Neurological: Present: restless legs. Absent: headache(s) Psychiatric: Present: anxiety, change in appetite Endocrine: Present: cold intolerance, fatigue. Absent: excessive sweating Hematologic/Lymphatic: Absent: easy bleeding, easy bruising, lymphadenopathy Oncology Inpatient Results Labs: Laboratory Results - last 24 hr 01/04/19 01/04/19 01/04/19 10:05 12:31 15:05 WBC RBC Hgb Hct MCV MCH MCHC RDW Plt Count MPV Immature Gran % Seg Neutrophils % Lymphocytes % Monocytes % Eosinophils % Basophils % Neutrophils # Lymphocytes # Monocytes # Eosinophils # Basophils # PT 11.8 INR 1.0 Sodium 133 L Potassium 4.6 Chloride 91 L Carbon Dioxide 32 H BUN 66 H Creatinine 2.50 H Est GFR ( Amer) 32 L Est GFR (Non-Af Amer) 26 L BUN/Creatinine Ratio 26 Glucose 129 H Calculated Osmolality 297 Calcium 11.0 H Total Bilirubin 0.4 Direct Bilirubin 0.1 Indirect Bilirubin 0.3 AST 27 ALT 26 Alkaline Phosphatase 93 Troponin I < 0.03 Serum Total Protein 8.1 Albumin 4.5 Globulin 3.6 H Albumin/Globulin Ratio 1.3 Lipase 64 Stool Occult Bld Scrn Positive A Blood Type Antibody Screen 01/04/19 01/04/19 01/04/19 16:05 16:05 21:53 WBC RBC Hgb 9.2 L 9.7 L Hct 27.9 L 29.4 L MCV MCH MCHC RDW Plt Count MPV Immature Gran % Seg Neutrophils % Lymphocytes % Monocytes % Eosinophils % Basophils % Neutrophils # Lymphocytes # Monocytes # Eosinophils # Basophils # PT INR Sodium Potassium Chloride Carbon Dioxide BUN Creatinine Est GFR ( Amer) Est GFR (Non-Af Amer) BUN/Creatinine Ratio Glucose Calculated Osmolality Calcium Total Bilirubin Direct Bilirubin Indirect Bilirubin AST ALT Alkaline Phosphatase Troponin I Serum Total Protein Albumin Globulin Albumin/Globulin Ratio Lipase Stool Occult Bld Scrn Blood Type O POSITIVE Antibody Screen NEGATIVE 01/05/19 01/05/19 01/05/19 00:30 00:30 09:50 WBC 9.4 RBC 2.94 L Hgb 8.6 L 9.4 L Hct 26.8 L 28.9 L MCV 91.2 MCH 29.3 MCHC 32.1 RDW 14.0 Plt Count 278 MPV 11.6 Immature Gran % 0.7 Seg Neutrophils % 67.9 Lymphocytes % 19.4 Monocytes % 8.8 Eosinophils % 2.9 Basophils % 0.3 Neutrophils # 6.4 Lymphocytes # 1.8 Monocytes # 0.8 Eosinophils # 0.3 Basophils # 0.0 PT INR Sodium 132 L Potassium 4.6 Chloride 97 L Carbon Dioxide 27 BUN 56 H Creatinine 2.08 H Est GFR ( Amer) 39 L Est GFR (Non-Af Amer) 32 L BUN/Creatinine Ratio 27 H Glucose 95 Calculated Osmolality 289 Calcium 9.9 Total Bilirubin Direct Bilirubin Indirect Bilirubin AST ALT Alkaline Phosphatase Troponin I Serum Total Protein Albumin Globulin Albumin/Globulin Ratio Lipase Stool Occult Bld Scrn Blood Type Antibody Screen Abdomen/Pelvis CT 01/04/19 12:45 IMPRESSION: Findings suspicious for metastatic disease. Multiple pulmonary nodules. Scattered sclerotic osseous foci are suspicious for metastatic disease. Masslike area within the upper abdomen may represent a mesenteric mass, extension of a duodenal mass, or a pancreatic head mass. Multiple surrounding enlarged lymph nodes are suspicious for metastatic disease. Evaluation is suboptimal without contrast. Recommend post contrast imaging versus MRI with contrast. D/ / 01/04/2019 14:20:16 Jose Guerrier MD / Sarah Woodson Interpreting Provider: Jose Guerrier MD Chest CT 01/04/19 15:41 IMPRESSION: 1. Findings again suspicious for metastatic disease as noted on today's CT abdomen pelvis including innumerable bilateral pulmonary nodules measuring up to 1.3 cm and several sclerotic osseous lesions involving the bilateral ribs. PET-CT or tissue sampling should be considered. 2. Redemonstration of ill-defined hepatic lesion on this noncontrast exam is described on today's CT abdomen pelvis. D/ / Leon Whelan MD / Leon Whelan MD Interpreting Provider: Leon Whelan MD Consult Discharge Plan - Plan Referrals: Iman Brsaher CNP [Primary Care Provider] - 01/09/19 2:00 pm () Inpatient Charges Provider: Dr. Bar Gonzalez <LisaEnrique - Last Filed: 01/05/19 20:22> Date of Encounter: 01/05/19 - Data of Consult Requesting Physician: Suzy Cortes MD Primary Care Provider: Iman Brasher CNP - Attending Attestation I have seen and examined Mr. Gandhi and agree with the assessment and plan put in place by my nurse practitioner. He has developed nausea with emesis to most solid foods with a few exceptions. He does tolerate liquid foods. He is lost a significant amount of weight over the past 3 months. He denies passing any melena or hematochezia. He denies any current abdominal discomfort although he has had abdominal pain in the past. Patient underwent EGD today which showed a duodenal mass. Biopsy was obtained with pathology pending. Examination reveals a healthy middle-aged man who is in no acute distress. Heart regular rate and rhythm without murmur gallop or rub. Lungs are clear to auscultation. 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 Lymphoma is also in the differential but less likely. Of most importance will be management of his primary tumor. I think palliative stent placement will need to be considered or GJ bypass. I will touch base with Dr. Ventura of gastroenterology and possibly surgery depending upon his opinion. We discussed with the patient that once his primary tumor is addressed, we can focus on systemic chemotherapy to try to control his disease. We will need to consider contrasted CT imaging or PET CT imaging once his kidney function improves. All questions were answered to the best of my ability. We will continue to follow. Inpatient Charges Provider: Dr. Bar Gonzalez Consult - Inpatient Medicare Only: [id number]
--- NOTE | 2019-01-05 12:45 | Anesthesia Evaluation PreOp ---
<Jose Morales - Last Filed: 01/05/19 12:41> Date of Encounter: 01/05/19 - Past History Cardiac History: HTN, Hyperlipidemia, Cardiac Surgery (CABG 2005) Pulmonary History: Other (pulmonary nodules) Other Medical History: Renal (ANGIE), Diabetes Type II, Thyroid (hypo), Other (GI bleed, abdominal mass) Anesthesia History: No Prior Anesthetic Complications, Past Anesthesia Alcohol Use: none Drug use: none Medications and Allergies Aspirin [Adult Aspirin Regimen] 81 mg PO DAILY 01/04/19 [History] Atenolol [Tenormin] 25 mg PO DAILY 01/04/19 [History] Benazepril HCl [Lotensin] 20 mg PO DAILY 01/04/19 [History] Levothyroxine 125 mcg PO DAILY 01/04/19 [History] [place] 5-325 mg 5 - 325 mg PO Q6H PRN 01/04/19 [History] Simvastatin 40 mg PO HS 01/04/19 [History] Tizanidine HCl 4 mg PO TID PRN 01/04/19 [History] Tramadol HCl 50 mg PO Q6H PRN 01/04/19 [History] rOPINIRole 1 mg PO HS 01/04/19 [History] Allergy/AdvReac Type Severity Reaction Status Date / Time hydrocodone AdvReac Vomiting Verified 01/04/19 10:51 Tizanidine [From Zanaflex] AdvReac Vomiting Verified 01/04/19 10:51 - Meds/Allergy Pre-op Review Medications Reviewed: Yes Allergies Reviewed: Yes Beta Blockers on Current Med List: Yes (atenolol ) If Beta Blockers taken, Date/Time (Last Dose taken): held due to hypotension Anesthesia Results - Labs 01/05/19 09:50 01/05/19 00:30 - Imaging EKG: report reviewed Anesthesia Exam Vital Signs/O2 Sat/Glucose, Most Recent Temp Pulse Resp BP Pulse Ox 98.4 F 67 15 111/65 97 01/05/19 11:26 01/05/19 11:26 01/05/19 11:26 01/05/19 11:26 01/05/19 11:26 Blood Glucose* 100 Weight: 103 kg NPO (# of Hours): > 8 hr Anesthesia Assess/Plan ASA Score: 3 Level of consciousness: Cooperative, Oriented Anesthetic Plan: MAC Monitoring Plan: Standard Monitors Recovery Plan: PACU <CelesteNeymar - Last Filed: 01/05/19 14:22> Date of Encounter: 01/05/19 Time of Encounter: 14:15 - Past History Planned Operation: EGD Anesthesia Results - Labs 01/05/19 09:50 01/05/19 00:30 Anesthesia Exam Selected Entries 01/05/19 11:26 Temperature 98.4 F Pulse Rate 67 Respiratory Rate 15 Blood Pressure 111/65 O2 Sat by Pulse Oximetry 97 Oxygen Delivery Method Room Air - HEENT Pupil (Motor): EOMI Mallampati: II Teeth: Edentulous Oral Opening: Greater than 3 - DEMAND EQUIPMENT REPAIRER LOC: Oriented DEMAND EQUIPMENT REPAIRER Motor: Normal RUE, Normal LUE, Normal RLE, Normal LLE, Normal Face DEMAND EQUIPMENT REPAIRER Sensory: Normal: RUE, LUE, RLE, LLE, Face - Cardiac Rhythm: Regular Murmur: None - Pulmonary Breath Sounds: bilateral Clear Respiratory Effort: Symmetrical Anesthesia Assess/Plan ASA Score: 3 Anesthetic Plan: MAC Monitoring Plan: Standard Monitors Recovery Plan: PACU (agrees to MAC)
[2019-01-05] MEDS ORDERED: Lidocaine -MPF 2% 2 ML VIAL ONE (13:04)
[2019-01-05] MEDS ORDERED: Propofol 500 MG/50 ML INFUS..BTL ONE (13:04)
[2019-01-05] MEDS: Ringers Solution, Lactated 2,000 ML IVC SCH (14:59)
--- NOTE | 2019-01-05 17:24 | Gastroenterology Consult Note ---
<Forrest Hopkins - Last Filed: 01/05/19 17:21> Date of Encounter: 01/05/19 Time of Encounter: 10:45 - Assessment and plan (1) Anemia Status: Acute Assessment and plan: While in the ED he was found to be anemic with Hgb 9.7, this AM Hgb 8.6, and fecal occult blood test positive. Continue to monitor CBC and transfuse PRBC as needed. Plan for EGD today to r/o esophagitis, gastritis, duodenitis, PUD, MW tear, or AVM. Keep NPO for scope. Qualifiers: Anemia type: unspecified type Qualified Code(s): D64.9 - Anemia, unspecified (2) Abdominal mass Status: Acute Assessment and plan: Plan for EGD today to r/o esophagitis, gastritis, duodenitis, PUD, MW tear, or AVM. Dr. Ventura to discuss EUS with Dr. Blas. Abdomen/Pelvis CT 01/04/19 12:45 IMPRESSION: Findings suspicious for metastatic disease. Multiple pulmonary nodules. Scattered sclerotic osseous foci are suspicious for metastatic disease. Masslike area within the upper abdomen may represent a mesenteric mass, extension of a duodenal mass, or a pancreatic head mass. Multiple surrounding enlarged lymph nodes are suspicious for metastatic disease. Evaluation is suboptimal without contrast. Recommend post contrast imaging versus MRI with contrast. D/ / 01/04/2019 14:20:16 Jose Guerrier MD / Sarah Woodson Interpreting Provider: Jose Guerrier MD Chest CT 01/04/19 15:41 IMPRESSION: 1. Findings again suspicious for metastatic disease as noted on today's CT abdomen pelvis including innumerable bilateral pulmonary nodules measuring up to 1.3 cm and several sclerotic osseous lesions involving the bilateral ribs. PET-CT or tissue sampling should be considered. 2. Redemonstration of ill-defined hepatic lesion on this noncontrast exam is described on today's CT abdomen pelvis. D/ / Leon Whelan MD / Leon Whelan MD Interpreting Provider: Leon Whelan MD Qualifiers: Abdominal location: epigastric Qualified Code(s): R19.06 - Epigastric swelling, mass or lump - Time Spent With Patient Total time spent is greater than 50% in coordination of care (as documented) at patient's floor/unit and/or counseling patient: GI History of Present Illness - Data of Consult Patient: new to practice Consult date: 01/05/19 Requesting Physician: Suzy Cortes MD - Consult Narrative Reason for consult: GI bleed, duodenal/pancreas mass History of present illness: Mr. Gandhi is a 63 year old male with PMHx of CAD, DM, HLD, HTN, [place] who presented with complaints of nausea, vomiting, and heartburn which has been ongoing for the past few months. He admits to weight loss of about 20 lbs. He denies fever, chills, chest pain, shortness of breath, constipation, diarrhea, nausea, vomiting, melena, or hematochezia. CT A/P with masslike area within the upper abdomen may represent a mesenteric mass, extension of a duodenal mass, or a pancreatic head mass. Multiple surrounding enlarged lymph nodes are suspicious for metastatic disease. We were consulted to evaluate possible duodenal mass and for GI bleed. While in the ED he was found to be anemic with Hgb 9.7, this AM Hgb 8.6, and fecal occult blood test positive. Procedures: None NSAIDs: ASA Anticoagulation: None Past Med Surg Social Fam HX - Past Medical History Medical history: coronary artery disease, diabetes, hyperlipidemia, hypertension, myocardial infarction, thyroid disease Psychiatric history: no psych history - Past Surgical History Surgical History: coronary bypass (CABG) - Social History Smoking Status: Former smoker (about 40-45 pack years) Smokeless Tobacco Status: No Alcohol use: none Drug use: none - Family History Daughter Cause of : breast cancer Hx Family Cancer: Yes Father Living Status: Age at : 54 Cause of : lung cancer Hx Family Cancer: Yes Mother Living Status: Cause of : GI cancer Hx Family Cancer: Yes - Gastrointestinal Gastrointestinal: Present: as per HPI - Constitutional Constitutional: as per HPI - EENT Eyes: as per HPI Ears: Present: as per HPI Nose, mouth and throat: Present: as per HPI - Cardiovascular Cardiovascular ROS: Present: as per HPI - Respiratory Respiratory IM: Present: as per HPI - Genitourinary Genitourinary: Absent: change in color, Urinary frequency - Neurological ROS Neurological GI: Present: as per HPI - Hematologic/Lymphatic Hematologic/Lymphatic pediatric: Present: as per HPI - Musculoskeletal Musculoskeletal ROS GI: Present: as per HPI - Integumentary Integumentary GI: Present: as per HPI - Psychiatric ROS Psychiatric GI: Present: as per HPI - Endocrine Endocrine IM: Present: as per HPI - Constitutional Vitals: Temp Pulse Resp BP Pulse Ox 98.4 F 92 16 123/74 96 01/05/19 14:20 01/05/19 15:30 01/05/19 15:30 01/05/19 15:30 01/05/19 15:30 General appearance: Present: cooperative, A&O X 3, no acute distress, answers questions appropriately - Head Head exam: Present: atraumatic, normocephalic - Eye Eye exam: Present: normal appearance, sclera anicteric - ENT ENT exam: Present: mucous membranes dry - Neck Neck exam general surgery: Present: normal inspection, trachea midline - Respiratory Respiratory exam: Present: CTAB. Absent: rales, rhonchi - Cardiovascular Cardiovascular exam: Present: RRR, +S1, +S2 - GI/Abdominal GI/Abdominal exam: Present: soft, no peritoneal signs. Absent: distended, firm, guarding, tenderness - Rectal Rectal exam: Present: deferred - Extremities Exam Extremities exam: Present: warm - Neurological Exam Neurological exam: Present: no focal deficits - Psychiatric Psychiatric exam: Present: normal affect, normal mood - Skin Skin exam: Present: dry, intact, normal color, warm Results - Labs CBC & Chem 7: 01/05/19 09:50 01/05/19 00:30 Labs: Last Result Calcium 9.9 mg/dL (8.6-10.3) 01/05/19 00:30 Troponin I < 0.03 ng/mL (< 0.04) 01/04/19 10:05 Entire Visit Hgb 9.4 g/dL (12.9-16.9) L 01/05/19 09:50 Hct 28.9 % (37.5-50.1) L 01/05/19 09:50 PT 11.8 Seconds (9.4-12.1) 01/04/19 15:05 Total Bilirubin 0.4 mg/dL (0.3-1.0) 01/04/19 10:05 AST 27 Units/L (13-39) 01/04/19 10:05 ALT 26 Units/L (7-52) 01/04/19 10:05 Lipase 64 Units/L (11-82) 01/04/19 10:05 - ABG ABG results: PT/INR, D-dimer PT 11.8 Seconds (9.4-12.1) 01/04/19 15:05 - Impressions Impressions Chest CT 01/04/19 15:41 IMPRESSION: 1. Findings again suspicious for metastatic disease as noted on today's CT abdomen pelvis including innumerable bilateral pulmonary nodules measuring up to 1.3 cm and several sclerotic osseous lesions involving the bilateral ribs. PET-CT or tissue sampling should be considered. 2. Redemonstration of ill-defined hepatic lesion on this noncontrast exam is described on today's CT abdomen pelvis. D/ / Leon Whelan MD / Leon Whelan MD Interpreting Provider: Leon Whelan MD Consult Discharge Plan - Plan Referrals: Iman Brasher, SENIOR BUSINESS DEVELOPMENT ANALYST [Primary Care Provider] - 01/09/19 2:00 pm () <Obdulio Ventura - Last Filed: 01/14/19 05:53> Date of Encounter: 01/05/19 - Time Spent With Patient Total time spent is greater than 50% in coordination of care (as documented) at patient's floor/unit and/or counseling patient: GI History of Present Illness - Data of Consult Requesting Physician: Suzy Cortes MD - Consult Narrative History of present illness: Mr. Gandhi is a 63 year old male - Constitutional Vitals: Temp Pulse Resp BP Pulse Ox 99.0 F 85 16 151/89 98 01/06/19 18:35 01/06/19 18:35 01/06/19 18:35 01/06/19 18:35 01/06/19 18:35 Results - Labs CBC & Chem 7: 01/06/19 04:58 01/06/19 14:43 Labs: Last Result Calcium 9.9 mg/dL (8.6-10.3) 01/06/19 14:43 Iron 40 mcg/dL (65-175) L 01/05/19 17:41 % Saturation 9 % (20-55) L 01/05/19 17:41 Transferrin 314 mg/dL (203-362) 01/05/19 17:41 Ferritin 59 ng/mL (20-250) 01/05/19 17:41 Troponin I < 0.03 ng/mL (< 0.04) 01/04/19 10:05 Vitamin B12 493 pg/mL (250-1100) 01/05/19 17:41 Folate 13.6 ng/mL (3.0-16.0) 01/05/19 17:41 Entire Visit Hgb 9.0 g/dL (12.9-16.9) L 01/06/19 04:58 Hct 27.6 % (37.5-50.1) L 01/06/19 04:58 PT 11.8 Seconds (9.4-12.1) 01/04/19 15:05 Ferritin 59 ng/mL (20-250) 01/05/19 17:41 Total Bilirubin 0.4 mg/dL (0.3-1.0) 01/04/19 10:05 AST 27 Units/L (13-39) 01/04/19 10:05 ALT 26 Units/L (7-52) 01/04/19 10:05 Lipase 64 Units/L (11-82) 01/04/19 10:05 Folate 13.6 ng/mL (3.0-16.0) 01/05/19 17:41 - ABG ABG results: PT/INR, D-dimer PT 11.8 Seconds (9.4-12.1) 01/04/19 15:05 - Attending Attestation Mr Gandhi is a very unfortunate individual who has been unable to keep anything down past two days and has had profound weight loss past month. CT suggests either a duodenal or pancreatic neoplasm with metastatic disease. Will plan EGD to see if, we can get to the mass and biopsy. Obstruction seems at the level of distal second part of duodenum. Further post EGD I have personally performed a face to face evaluation on this patient. I have reviewed and agree with the care plan. History and Exam by me shows:
[2019-01-05 18:40] LABS: % Iron Saturation 9 % (20-55); Iron 40 mcg/dL (65-175); Transferrin 314 mg/dL (203-362)
[2019-01-05 18:55] LABS: Ferritin 59 ng/mL (20-250)
[2019-01-05 19:00] LABS: Folate 13.6 ng/mL (3.0-16.0)
[2019-01-05] MEDS: rOPINIRole 1 MG TABLET PO SCH (20:37)
[2019-01-06] MEDS: Ringers Solution, Lactated 2,000 ML IVC SCH (02:56)
[2019-01-06] MEDS: Pantoprazole 40 MG VIAL IVP SCH ×2 (05:31→18:45)
[2019-01-06] MEDS: Insulin LISPRO 300 UNITS/3 ML VIAL SQ SCH ×3 (05:31→18:23)
[2019-01-06] MEDS: Levothyroxine Sodium 100 MCG VIAL IVP SCH (05:51)
[2019-01-06 06:09] LABS: Basophils % 0.3 %; Eosinophils # 0.1 K/mcL (0.0-0.6); Eosinophils % 0.4 %; Hematocrit 27.6 % (37.5-50.1); Immature Granulocytes % 0.6 % (0-4); Lymphocytes # 1.9 K/mcL (0.6-4.6); Lymphocytes % 13.4 %; Mean Corpuscular HGB Conc 32.6 g/dL (31.6-35.5); Mean Corpuscular Hemoglobin 29.4 pg (28.0-33.3); Mean Corpuscular Volume 90.2 fL (83.0-100.0); Mean Platelet Volume 11.6 fL (9.4-12.4); Monocytes # 0.9 K/mcL (0.0-1.3); Monocytes % 6.4 %; Neutrophils # 11.2 K/mcL (1.6-8.9); Platelet Count 287 K/mcL (140-400); Red Blood Count 3.06 M/mcL (4.19-5.50); Red Cell Distribution Width 14.2 % (11.5-14.5); Segmented Neutrophils % 78.9 %
[2019-01-06 06:29] LABS: Potassium 4.6 mEq/L (3.5-5.1)
--- NOTE | 2019-01-06 07:51 | General Surgery Progress Note ---
<KostasJustin Orin - Last Filed: 01/06/19 07:49> Date of Encounter: 01/06/19 Time of Encounter: 07:35 - Assessment and Plan (1) Abdominal mass Current Visit: Yes Status: Acute -Previously unknown to patient -CT abd/plv 01/04/19: Mass within upper abdomen, may represent mesenteric mass, duodenol mass, or pancreatic head mass. Multiple surrounding mesenteric lymph nodes suspicious of metastatic disease. Multiple pulmonary nodules. -EGD 01/05/19: near obstructing ulcerated duodenal mass with retained food in duodenum. Biopsies taken. -Pathology of duodenal biopsies pending -Will discuss case with oncology today for guidance on future plans of curative or only palliative treatments -Discussed possible gastrojejunostomy to help relieve symptoms 2/2 duodenal mass if chooses to have treatment here vs mention of [facility] treatment -Any surgical intervention will likely be palliative in nature -Will follow if needed in the future Qualifiers: Abdominal location: epigastric Qualified Code(s): R19.06 - Epigastric swelling, mass or lump (2) GI bleed Current Visit: Yes Status: Suspected -GI performed EGD with no evidence of active bleeding. Showed reflux esophagitis, non bleeding ulcerated near obstructing duodenal mass. Qualifiers: GI bleed type/associated pathology: unspecified gastrointestinal hemorrhage type Qualified Code(s): K92.2 - Gastrointestinal hemorrhage, unspecified Subjective Narrative: No new complaints today. Says feeling better. Single documented febrile reading overnight at 100.9F which is wnl now. Denies subjective fever/chills, abdominal pain, N/V. Objective Vital Signs - Last 8 Hours Temp Pulse Resp BP Pulse Ox 01/06/19 03:59 99.4 F 76 16 134/77 97 Intake and Output 01/05/19 01/05/19 01/06/19 15:59 23:59 07:59 Intake Total 1000 / 1000 0 / 0 1000 / 1000 Balance 1000 / 1000 0 / 0 1000 / 1000 Intake: IV Fluids 1000 / 1000 1000 / 1000 Lactated Ringers 2,000 ML @ 100 1000 / 1000 1000 / 1000 mls/hr IVC .Q20H [facility] Rx#: [id number] Oral 0 / 0 0 / 0 0 / 0 Other: Meal npo Percent of Meal Consumed 0% Blood Glucose* 100 88 99 - General physical appearance well developed, well nourished, no distress - Eyes normal ocular movement - ENT dry mucosa - Neck Neck exam: trachea midline - Respiratory normal expansion, normal respiratory effort, clear to auscultation - Cardiovascular Cardiovascular exam: Present: RRR. Absent: bradycardia, tachycardia, irregular rhythm, murmurs, clicks, rubs, gallop, distant heart sounds, JVD - Abdomen Abdomen: Present: bowel sounds present, soft, non tender. Absent: distended, t nereida, organomegaly, masses, guarding, rebound, rigid - Integumentary no rash - Neurologic CN 2-12 grossly intact, normal coordination - Psychiatric oriented to time, oriented to person, oriented to place, speech is normal - Labs 01/06/19 04:58 01/06/19 04:58 Diabetes panel 01/06/19 Range/Units 04:58 Sodium 133 L (136-145) mEq/L Potassium 4.6 (3.5-5.1) mEq/L Chloride 101 (98-107) mEq/L Carbon Dioxide 25 (23-29) mEq/L BUN 36 H (8-23) mg/dL Creatinine 1.50 H (0.70-1.30) mg/dL Glucose 99 (70-105) mg/dL Calcium 10.0 (8.6-10.3) mg/dL Calcium panel 01/06/19 Range/Units 04:58 Calcium 10.0 (8.6-10.3) mg/dL Pituitary panel 01/06/19 Range/Units 04:58 Sodium 133 L (136-145) mEq/L Potassium 4.6 (3.5-5.1) mEq/L Chloride 101 (98-107) mEq/L Carbon Dioxide 25 (23-29) mEq/L BUN 36 H (8-23) mg/dL Creatinine 1.50 H (0.70-1.30) mg/dL Glucose 99 (70-105) mg/dL Calcium 10.0 (8.6-10.3) mg/dL Adrenal panel 01/06/19 Range/Units 04:58 Sodium 133 L (136-145) mEq/L Potassium 4.6 (3.5-5.1) mEq/L Chloride 101 (98-107) mEq/L Carbon Dioxide 25 (23-29) mEq/L BUN 36 H (8-23) mg/dL Creatinine 1.50 H (0.70-1.30) mg/dL Glucose 99 (70-105) mg/dL Calcium 10.0 (8.6-10.3) mg/dL Consult Discharge Plan - Plan Referrals: Iman Brasher, VAUGHN [Primary Care Provider] - 01/09/19 2:00 pm () <Lefty Faye - Last Filed: 01/06/19 09:09> Date of Encounter: 01/06/19 Objective Vital Signs - Last 8 Hours Temp Pulse Resp BP Pulse Ox 01/06/19 07:54 98.5 F 78 18 105/48 96 01/06/19 03:59 99.4 F 76 16 134/77 97 Intake and Output 01/05/19 01/06/19 01/06/19 23:59 07:59 15:59 Intake Total 0 / 0 1000 / 1000 Balance 0 / 0 1000 / 1000 Intake: IV Fluids 1000 / 1000 Lactated Ringers 2,000 ML @ 100 1000 / 1000 mls/hr IVC .Q20H [facility] Rx#: [id number] Oral 0 / 0 0 / 0 Other: Meal npo Percent of Meal Consumed 0% Blood Glucose* 88 99 - Labs 01/06/19 04:58 01/06/19 04:58 Diabetes panel 01/06/19 Range/Units 04:58 Sodium 133 L (136-145) mEq/L Potassium 4.6 (3.5-5.1) mEq/L Chloride 101 (98-107) mEq/L Carbon Dioxide 25 (23-29) mEq/L BUN 36 H (8-23) mg/dL Creatinine 1.50 H (0.70-1.30) mg/dL Glucose 99 (70-105) mg/dL Calcium 10.0 (8.6-10.3) mg/dL Calcium panel 01/06/19 Range/Units 04:58 Calcium 10.0 (8.6-10.3) mg/dL Pituitary panel 01/06/19 Range/Units 04:58 Sodium 133 L (136-145) mEq/L Potassium 4.6 (3.5-5.1) mEq/L Chloride 101 (98-107) mEq/L Carbon Dioxide 25 (23-29) mEq/L BUN 36 H (8-23) mg/dL Creatinine 1.50 H (0.70-1.30) mg/dL Glucose 99 (70-105) mg/dL Calcium 10.0 (8.6-10.3) mg/dL Adrenal panel 01/06/19 Range/Units 04:58 Sodium 133 L (136-145) mEq/L Potassium 4.6 (3.5-5.1) mEq/L Chloride 101 (98-107) mEq/L Carbon Dioxide 25 (23-29) mEq/L BUN 36 H (8-23) mg/dL Creatinine 1.50 H (0.70-1.30) mg/dL Glucose 99 (70-105) mg/dL Calcium 10.0 (8.6-10.3) mg/dL - Attending Attestation patient seen and examined. i have reviewed all labs, imaging, and notes. i have discussed the case with the resident in detail. i agree with the above assessment and plan and wish to add the following... 63M with near obstructing duodenal mass, concern for stage IV malignancy; awaiting discussion with oncology discussed with patient briefly surgery available for palliative bypass: can likely do it in the next 24-48hrs will cont to follow
--- NOTE | 2019-01-06 07:59 | Internal Med Progress Note ---
Hospitalist Progress Note - Encounter Date of Encounter: 01/06/19 Time of Encounter: 07:39 - Exam Vitals: Temp Pulse Resp BP Pulse Ox 98.5 F 78 18 105/48 96 01/06/19 07:54 01/06/19 07:54 01/06/19 07:54 01/06/19 07:54 01/06/19 07:54 - Assessment and Plan (1) GI bleed Current Visit: Yes Status: Suspected (2) Abdominal mass Current Visit: Yes Status: Acute (3) Acute kidney failure Current Visit: Yes Status: Acute (4) DVT prophylaxis Current Visit: Yes Status: Acute (5) Diabetes Current Visit: Yes Status: Acute (6) HTN (hypertension) Current Visit: Yes Status: Acute (7) CAD (coronary artery disease) Current Visit: Yes Status: Acute (8) Hypothyroid Current Visit: Yes Status: Acute (9) Diabetic neuropathy Current Visit: Yes Status: Acute (10) Restless leg syndrome Current Visit: Yes Status: Acute - Time Spent with Patient Total time spent is greater than 50% in coordination of care (as documented) at patient's floor/unit and/or counseling patient: Internal Medicine: Result - Labs CBC & Chem 7: 01/06/19 04:58 01/06/19 04:58 Labs: Short CBC 01/05/19 01/06/19 Range/Units 09:50 04:58 WBC 14.2 H D (4.3-11.1) K/mcL Hgb 9.4 L 9.0 L (12.9-16.9) g/dL Hct 28.9 L 27.6 L (37.5-50.1) % Plt Count 287 (140-400) K/mcL Neutrophils # 11.2 H (1.6-8.9) K/mcL BMP 01/06/19 04:58 Sodium 133 L Potassium 4.6 Chloride 101 Carbon Dioxide 25 BUN 36 H Creatinine 1.50 H Glucose 99 Calcium 10.0 - ABG Interpretation ABG results: PT/INR, D-dimer PT 11.8 Seconds (9.4-12.1) 01/04/19 15:05 Consult Discharge Plan - Plan Referrals: Iman Brasher, REJECT OPENER [Primary Care Provider] - 01/09/19 2:00 pm () (1) GI bleed Qualifiers: GI bleed type/associated pathology: unspecified gastrointestinal hemorrhage type Qualified Code(s): K92.2 - Gastrointestinal hemorrhage, unspecified (2) Abdominal mass Qualifiers: Abdominal location: epigastric Qualified Code(s): R19.06 - Epigastric swelling, mass or lump (3) Acute kidney failure Qualifiers: Acute renal failure type: unspecified Qualified Code(s): N17.9 - Acute kidney failure, unspecified (5) Diabetes Qualifiers: Diabetes mellitus type: type 2 Diabetes mellitus medical terminologist insulin use: without half-way use (6) HTN (hypertension) Qualifiers: Hypertension type: unspecified Qualified Code(s): I10 - Essential (primary) hypertension (7) CAD (coronary artery disease) Qualifiers: Coronary Disease-Associated Artery/Lesion type: [place] artery Associated angina: without angina (8) Hypothyroid Qualifiers: Hypothyroidism type: unspecified Qualified Code(s): E03.9 - Hypothyroidism, unspecified (9) Diabetic neuropathy Qualifiers: Diabetes mellitus type: type 2 Qualified Code(s): E11.42 - Type 2 diabetes mellitus with diabetic polyneuropathy
[2019-01-06] MEDS ORDERED: 0.9 % Sodium Chloride 1,000 ML IVC ONE (10:08)
[2019-01-06] MEDS ORDERED: Ringers Solution, Lactated 1,000 ML IVC SCH (10:45)
[2019-01-06] MEDS: OXYCODONE Oral CONC 10 MG/0.5 ML ORAL.SYG SL PRN ×2 (11:02→18:44)
--- NOTE | 2019-01-06 14:00 | Oncology Inp Progress Note ---
<Pilar Malhotra L - Last Filed: 01/06/19 18:18> Date of Encounter: 01/06/19 Time of Encounter: 12:30 (1) Abdominal mass Status: Acute Assessment and plan: CT abdomen and pelvis without contrast (01/04/19) and CT chest (01/04/19): Masslike area within the upper abdomen may represent a mesenteric mass, extension of a duodenal mass, or a pancreatic head mass. Measuring 2.6 cm. Multiple surrounding enlarged lymph nodes are suspicious for metastatic disease. Multiple pulmonary nodules. Scattered sclerotic osseous foci are suspicious for metastatic disease. EGD biopsy of duodenal mass 01/05/[address] Ventura. Plan: Pathology from EGD on 01/05/2019 is still pending We discussed management of postprandial emesis related to duodenal mass with consideration of duodenal stent vs. duodenal bypass. Following further discussion with GI, this is not amendable to stenting. We discussed surgical management with duodenal bypass, patient and patients at this time are however preferring transfer to [facility] for further evaluation, they made the hospitalist aware of this preference earlier today and now have acceptance with bed availability. We agree in accommodating patients preference We introduced the idea of systemic treatment options once her recovers from duodenal bypass and he may prefer to have systemic treatment closer to home, I will arrange for follow up with Dr. Gonzalez in mid January Plan for PET/CT as outpatient. Qualifiers: Abdominal location: epigastric Qualified Code(s): R19.06 - Epigastric swelling, mass or lump Oncology: Subj Interval history: Mr. Gandhi is feeling ok today. He is hungry and has been NPO for anticipation of further interventions, he is asking when he may eat. He denies pain. Nausea and vomiting have not been an issue as he has been NPO. His is at bedside. No acute events noted overnight. - Constitutional General appearance: cooperative, no acute distress, no febrile - Head Head exam: Present: atraumatic - ENT ENT exam: Present: mucous membranes moist, normal oropharynx - Respiratory Respiratory exam: Present: decreased breath sounds, CTAB. Absent: respiratory distress - Cardiovascular Cardiovascular exam: Present: RRR, +S1, +S2 - GI/Abdominal GI/Abdominal exam: Present: normal bowel sounds, soft. Absent: tenderness - Extremities Exam Extremities exam: Present: normal inspection - Neurological Exam Neurological exam: Present: alert, oriented X3, no focal deficits, strengths equal and symetr throughout - Psychiatric Psychiatric exam: Present: normal affect, normal mood - Skin Skin exam: Present: dry, intact, normal color, warm Oncology: Obj Data - Labs CBC & Chem 7: 01/06/19 04:58 01/06/19 14:43 Consult Discharge Plan - Plan Referrals: Iman Brasher, OUTSOLE TACKER [Primary Care Provider] - 01/09/19 2:00 pm () Inpatient Charges Provider: Dr. Bar Gonzalez <Enrique Gonzalez S - Last Filed: 01/06/19 21:54> Date of Encounter: 01/06/19 Oncology: Obj Data - Labs CBC & Chem 7: 01/06/19 04:58 01/06/19 14:43 Inpatient Charges Provider: Dr. Bar Gonzalez Follow up - Inpatient: [id number] - Attending Attestation I examined this patient and my medical decision-making was reviewed with the Advanced Practice Nurse. I agree with the documented findings, disposition and treatment plan as described except to the extent set forth below. Mr. Gandhi has a duodenal obstruction. I reviewed this case with Dr. Ventura of gastroenterology. This lesion is not amenable to stenting. We have also discussed this case with our surgeon. It has been recommended he proceed to [facility] for surgical bypass of this mass. Arrangement for transfer has been made. I did discuss with the patient has that systemic chemotherapy will be considered pending his biopsy which was obtained yesterday. Further decisions will be based off histology as well as potential next generation sequencing studies. He would like to continue his care here or locally upon completion of surgery. We will schedule follow-up appointment the week of January 19 in the office. I did review the imaging findings as well as different scenarios for treatment with the patient and his again today. All questions were answered. I spent 45 minutes in direct consultation with this pa tient this afternoon.
[2019-01-06 15:16] LABS: BUN/Creatinine Ratio 24 (6-26); Blood Urea Nitrogen 32 mg/dL (8-23); Calcium 9.9 mg/dL (8.6-10.3); Carbon Dioxide 24 mEq/L (23-29); Chloride 102 mEq/L (98-107); Glucose 107 mg/dL (70-105); Osmolality,Calculated 285 (280-300); Potassium 4.1 mEq/L (3.5-5.1); Sodium 134 mEq/L (136-145); eGFR For Non-African Americans 53 (> 60)
--- NOTE | 2019-01-06 17:45 | Discharge Summary ---
- NOTES TO OUTPATIENT PROVIDER Notes to Outpatient Provider: Patient transferrred to [facility] in [place] for possible gastrojejunal bypass surgery. We will need to follow up with surgery and oncology Orders not resulted at time of discharge: Pending orders 01/05/19 14:39 Surgical Pathology [PTH] Stat Date of Encounter: 01/06/19 Time of Encounter: 17:43 - Discharge Diagnosis (1) GI bleed Priority: Primary Status: Suspected Qualifiers: GI bleed type/associated pathology: unspecified gastrointestinal hemorrhage type Qualified Code(s): K92.2 - Gastrointestinal hemorrhage, unspecified (2) Abdominal mass Priority: Primary Status: Acute Qualifiers: Abdominal location: epigastric Qualified Code(s): R19.06 - Epigastric swelling, mass or lump (3) Acute kidney failure Priority: Primary Status: Acute Qualifiers: Acute renal failure type: unspecified Qualified Code(s): N17.9 - Acute kidney failure, unspecified (4) DVT prophylaxis Priority: Secondary Status: Acute (5) Diabetes Priority: Secondary Status: Acute Qualifiers: Diabetes mellitus type: type 2 Diabetes mellitus terminal operations manager insulin use: without retirement use Diabetes mellitus complication status: with neurologic complications Diabetes mellitus complication detail: with polyneuropathy Qualified Code(s): E11.42 - Type 2 diabetes mellitus with diabetic polyneuropathy (6) HTN (hypertension) Priority: Secondary Status: Acute Qualifiers: Hypertension type: unspecified Qualified Code(s): I10 - Essential (primary) hypertension (7) CAD (coronary artery disease) Priority: Secondary Status: Acute Qualifiers: Coronary Disease-Associated Artery/Lesion type: [place] artery Associated angina: without angina Qualified Code(s): I25.10 - Atherosclerotic heart disease of [place] coronary artery without angina pectoris (8) Hypothyroid Priority: Secondary Status: Acute Qualifiers: Hypothyroidism type: unspecified Qualified Code(s): E03.9 - Hypothyroidism, unspecified (9) Diabetic neuropathy Priority: Secondary Status: Acute Qualifiers: Diabetes mellitus type: type 2 Qualified Code(s): E11.42 - Type 2 diabetes mellitus with diabetic polyneuropathy (10) Restless leg syndrome Priority: Secondary Status: Acute Hospital course: Mr. Gandhi is a 63 year old male past medical history of coronary artery disease, hypertension, hyperlipidemia, hypothyroidism, restless leg syndrome came in with complaint of nausea vomiting and heartburn. Patient was found to have abdominal mass on CT scan which could be either pancreatic him a duodenal or biliary and multiple nodules on both lungs. GI, surgery and oncology were consulted. Patient underwent upper endoscopy which showed esophagitis, large ulcerated near obstructing mass with no bleeding in the second portion of duodenum. Biopsies were taken. Patient was recommended to have gastrojejunal bypass which he chose to have a [facility]. Patient has been arranged to be transferred to [facility]. He has been able to tolerate soft diet after the endoscopy. Discharge discussed with: patient, family, nurse, social work, [employer] consultant - Time Spent with Patient Total time spent providing and/or coordinating discharge services: Time spent: Greater than 30 minutes (45) - Discharge Medications Prescriptions: New Ondansetron [Zofran] 4 mg IVP Q8HR PRN vial PRN Reason: Nausea And Vomiting Pantoprazole [Protonix] 40 mg IVP DAILY vial Continue Amitriptyline [Elavil] 25 mg PO HS Amlodipine Besylate 10 mg PO DAILY Metoprolol [Lopressor] 25 mg PO BID rOPINIRole [Requip] 1 mg PO HS Tramadol HCl [Ultram] 50 mg PO Q6H PRN PRN Reason: Pain Aspirin [Lo-Dose Aspirin EC] 81 mg PO DAILY [place] Burn-3/Dha/Epa/Fish Oil [Fish Oil 1,000 mg Softgel] 2 cap PO DAILY Cholecalciferol (Vitamin D3) [Vitamin D3] 2,000 unit PO QAM Benazepril HCl 60 mg PO DAILY Atenolol [Tenormin] 12.5 mg PO HS Levothyroxine Sodium 125 mcg PO DAILY Simvastatin [Zocor] 40 mg PO QPM Fenofibrate [Tricor] 54 mg PO DAILY Home Medications: Amitriptyline [Elavil] 25 mg PO HS 01/05/19 [History] Amlodipine Besylate 10 mg PO DAILY 01/05/19 [History] Aspirin [Lo-Dose Aspirin EC] 81 mg PO DAILY 01/05/19 [History] Atenolol [Tenormin] 12.5 mg PO HS 01/05/19 [History] Benazepril HCl 60 mg PO DAILY 01/05/19 [History] Cholecalciferol (Vitamin D3) [Vitamin D3] 2,000 unit PO QAM 01/05/19 [History] Fenofibrate [Tricor] 54 mg PO DAILY 01/05/19 [History] Levothyroxine Sodium 125 mcg PO DAILY 01/05/19 [History] Metoprolol [Lopressor] 25 mg PO BID 01/05/19 [History] [place] Burn-3/Dha/Epa/Fish Oil [Fish Oil 1,000 mg Softgel] 2 cap PO DAILY 01/05/19 [History] Simvastatin [Zocor] 40 mg PO QPM 01/05/19 [History] Tramadol HCl [Ultram] 50 mg PO Q6H PRN 01/05/19 [History] rOPINIRole [Requip] 1 mg PO HS 01/05/19 [History] Ondansetron [Zofran] 4 mg IVP Q8HR PRN vial 01/06/19 [Rx] Pantoprazole [Protonix] 40 mg IVP DAILY vial 01/06/19 [Rx] Allergies/Adverse Reactions: Allergy/AdvReac Type Severity Reaction Status Date / Time hydrocodone AdvReac Vomiting, Verified 01/05/19 15:49 nausea Tizanidine [From Zanaflex] AdvReac Vomiting, Verified 01/05/19 15:49 nausea Date of admission: 01/04/19 15:05 Primary care physician: Iman Brasher CNP Consults: 01/04/19 15:41 Consult to Gastroenterology [CONS] Routine Consulting Provider: Gastroenterology [place] Reason for Consult: GI bleed, duodenal/pancreatic mass Call Completed: Yes 01/04/19 15:58 Consult to Surgery [CONS] Routine Consulting Provider: [facility] Reason for Consult: abdominal mass Call Completed: Yes 01/05/19 08:02 Consult to Oncology [CONS] Routine Consulting Provider: Oncology [facility] Reason for Consult: abdominal mass, lung nodules Call Completed: Yes Discharging clinician: Suzy Cortes - Constitutional Vitals: Temp Pulse Resp BP Pulse Ox 98.4 F 77 17 147/84 99 01/06/19 11:35 01/06/19 11:35 01/06/19 11:35 01/06/19 11:35 01/06/19 11:35 Exam: Constitutional: Vitals as noted. Conversant. No Apparent Distress. Respiratory : CTAB. No accessory muscle use, rales, rhonchi or wheezes Cardiovascular : RRR, +S1, +S2. no murmur, gallop, rubs. No chest wall tenderness GI/Abdominal : Soft, Non-tender, Non-distended, soft, no peritoneal signs. Musculoskeletal: no edema or cyanosis. warm extremities, no calf tenderness. Neurological: AO X3, CN II-XII grossly intact, grossly normal motor exam. Skin: No skin rash, lesions or ulcers noted. Pych: depressed affect. - Patient Status Disposition: Transfer Hospital Swing Bed Condition: Fair - Discharge Instructions Follow Up With: Iman Brasher CNP [Primary Care Provider] - 01/09/19 2:00 pm ()
--- NOTE | 2019-01-06 17:56 | Electrocardiograph Report ---
[address] [place], [place] [address] Test Date: 2019-01-04 Pat Name: Yusuf Gandhi Department: EXAMC1 Room: 3B23 Gender: M Natural Resources Specialist: : [id number] Requested By: Ashley Sams Order Number: [id number] Reading MD: Rahel Johns Measurements Intervals [place] Rate: 59 P: 72 [place]: 177 QRS: 72 QRSD: 121 T: 60 QT: 418 QTc: 415 Interpretive Statements Sinus rhythm Nonspecific intraventricular conduction delay Early R wave transition precordial leads Electronically Signed On 01-06-2019 17:54:59 EDT by Rahel Johns
[2019-01-06 18:35] VITALS: BP 151/89
[2019-01-06] MEDS: rOPINIRole 1 MG TABLET PO SCH (20:53)
== END 2019-01-06 21:15 | disposition other institution (70) | DRG 374 ==
LOC: 3BNU 09:36 → EMEROOARM 09:36 → SUATTDRO 14:08 → 3BNU 16:47
PROVIDERS: ADMIT Internal Medicine; ATTEND Internal Medicine
PROC: ENDOEBX (2019-01-05 13:00)